=== PATIENT | male | born 2005 | race Hispanic/Latino ===

== ENCOUNTER 2023-08-30 14:38 | Emergency (ER) | payer SELFPAY ==
[2023-08-30 15:30] LABS: Bilirubin Neg (Negative); Blood, Urine 150 (Negative); Glucose, Urine (Dipstick) Normal (Negative); Ketone, Urine Negative (Negative); Leukocyte 25 (Negative); Nitrite Negative (Negative); Protein, Urine (Dipstick) 500 mg/dl (Neg-Trace); Urobilinogen Normal mg/dL (Less than 2)
[2023-08-30 15:37] LABS: Bacteria/HPF None Seen HPF (None Seen); CAUTI Indications for Culture Acute Hematuria; RBC/HPF Greater than 50 HPF (0-3); Squamous Epithelial 0-3 HPF (0-3)
[2023-08-30 15:38] LABS: Clarity Bloody (Clear)
[2023-08-30 15:39] LABS: Urine Culture Reflex Yes Yes
[2023-08-30] MEDS ORDERED: cefTRIAXone (ROCEPHIN) 500 MG VIAL ONE (15:44)
[2023-08-30] MEDS ORDERED: Sterile Water 10 ML ONE (15:44)
[2023-08-30] MEDS ORDERED: Doxycycline 100 MG CAP PO SCH (16:00)
[2023-09-01 00:36] LABS: Chlam.trachomatis by PCR,Urine Not Detected (NotDetected); GC N.gonorrhoeae PCR,UrineVOID Not Detected (NotDetected)
== END 2023-08-30 17:00 | disposition home or self-care (01) ==
LOC: CSHERS 14:38
DX: N39.0 Urinary tract infection, site not specified (principal)
CPT/HCPCS: 81001; 87077; 87086; 87186; 87491; 87591; 96372; 99283; J0696